=== PATIENT | female | born 1985 | race Caucasian/White ===

== ENCOUNTER 2018-02-07 18:46 | Emergency (ER) | payer BC ==
[2018-02-07] MEDS ORDERED: ASPIRIN 81 MG CHEWABLE TABLET ONE (19:27)
[2018-02-07 19:40] LABS: Absolute Lymphocytes (CBC) 3.6 K/uL (0.7-4.9); Absolute Monocytes 0.6 K/uL (0.1-1.3); Absolute Neutrophil 7.1 K/uL (1.8-8.0); Basophils % 0.4 % (0-1.3); Eosinophils % 2.3 % (0-4.4); Hematocrit 44.9 % (36.0-45.0); Lymphocytes % 31.1 % (15.3-44.8); MCH 30.7 pg (27.0-35.0); MCV 92.8 fL (80-100); MPV 8.5 fL (7.6-11.3); Monocytes % 5.5 % (3.3-12.3); RBC Red Blood Cell Count 4.83 M/uL (3.86-4.86)
[2018-02-07 19:41] LABS: Protime INR 1.01
--- NOTE | 2018-02-07 20:02 | RAD REPORT ---
EXAM DESCRIPTION: [place] Single View02/07/2018 7:22 pm CLINICAL HISTORY: Chest pain COMPARISON: none FINDINGS: The lungs appear clear of acute infiltrate. The heart is normal size IMPRESSION: No acute abnormalities displayed
[2018-02-07 20:03] LABS: Potassium 4.2 mEq/L (3.6-5.0)
[2018-02-07 20:04] LABS: Magnesium 2.2 mg/dL (1.8-2.5)
[2018-02-07 20:30] LABS: Thyroid Stimulating Hormone 2.31 uIU/mL (0.34-5.60)
[2018-02-07 20:45] LABS: Urine Blood TRACE (NEG); Urine Glucose NEGATIVE (NEG); Urine Protein NEGATIVE (NEG); Urine Specific Gravity <1.005 (1.005-1.030)
[2018-02-07] MEDS ORDERED: ONDANSETRON 4 MG/2 ML VIAL ONE (20:46)
[2018-02-07] MEDS ORDERED: NA CHLORIDE 0.9% 1,000 ML ONE (21:41)
--- NOTE | 2018-02-07 21:51 | RAD REPORT ---
EXAM DESCRIPTION: CT - Chest For Pe Angio - 02/07/2018 9:32 pm CLINICAL HISTORY: Chest pain and shortness of breath COMPARISON: None. TECHNIQUE: Dynamically enhanced axial 3 mm thick images of the chest were obtained during administra tion of <100> mL Isovue 370 IV contrast. Coronal and oblique reconstruction images were generated and reviewed. Exam utilizes a protocol for optimal evaluation of pulmonary arterial tree. All CT scans are performed using dose optimization technique as appropriate and may include automated exposure control or mA/KV adjustment according to patient size. FINDINGS: A pulmonary embolus is not seen. A thoracic aortic aneurysm is not noted. A pleural effusion is not seen. A pericardial effusion is not seen. A lung consolidation is not present. A small hiatal hernia is present IMPRESSION: Negative for a pulmonary embolism.
--- NOTE | 2018-02-07 22:19 | ER ---
Nurse's Notes [facility] Name: Nellie Deng Age: 32 yrs Sex: Female : 1985 Arrival Date: 02/07/2018 Time: 18:48 Bed 6 Private MD: Anderson Gamez Diagnosis: Chest pain, unspecified Presentation: 02/07 18:55 Presenting complaint: Patient states: I was at home cooking and got a burning sensation la1 in my chest and to my left arm. Pt reports near syncope. reports drinking 3 beers prior to pain staring. PT states she feels dizzy, lightheaded, and disoriented. Transition of care: patient was not received from another setting of care. Onset of symptoms was February 07, 2018. Initial Sepsis Screen: Does the patient meet any 2 criteria? No. Patient's initial sepsis screen is negative. Does the patient have a suspected source of infection? No. Patient's initial sepsis screen is negative. Care prior to arrival: None. 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 - Social history:: Smoking status: Patient uses tobacco products, smokes one pack cigarettes per day. Screenin:21 Tuberculosis screening: No symptoms or risk factors identified. ak1 19:21 Abuse screen: Denies threats or abuse. Denies injuries from another. Nutritional ak1 screening: No deficits noted. Fall Risk None identified. Assessment: 19:18 General: Appears in no apparent distress. Behavior is calm, cooperative, Smells of ak1 alcohol. Pain: Complains of pain in chest Pain radiates to left arm Pain began today. Neuro: Level of Consciousness is awake, alert, obeys commands, Oriented to person, place, time, situation, Superior Court Clerk are equal bilaterally Moves all extremities. Gait is steady, Speech is slurred, pt admits to drinking 3 beers today.. Facial symmetry appears normal. Cardiovascular: Reports chest pain, Rhythm is sinus tachycardia. Respiratory: No deficits noted. GI: No signs and/or symptoms were reported involving the gastrointestinal system. : No signs and/or symptoms were reported regarding the genitourinary system. EENT: No signs and/or symptoms were reported regarding the EENT system. Derm: No signs and/or symptoms reported regarding the dermatologic system. Musculoskeletal: No signs and/or symptoms reported regarding the musculoskeletal system. 20:51 Reassessment: pt coughing "so hard I vomited". General:. ak1 22:59 Reassessment: Patient appears in no apparent distress at this time. No changes from ak1 previously documented assessment. Patient is alert, oriented x 3, equal unlabored respirations, skin warm/dry/pink. Vital Signs: 18:57 BP 146 / 114; Pulse 131; Resp 19; Temp 98.3; Pulse Ox 100% on R/A; Weight 136.08 kg; la1 Height 6 ft. 1 in. (185.42 cm); 19:12 BP 156 / 77; Pulse 113; Resp 18; Pulse Ox 99% on R/A; mt 22:53 BP 115 / 71; Pulse 104; Resp 20; Pulse Ox 100% on R/A; mt 18:57 Body Mass Index 39.58 (136.08 kg, 185.42 cm) la1 ED Course: 18:48 Patient arrived in ED. rg4 18:49 Anderson Gamez MD is Private Physician. rg4 18:57 Triage completed. la1 18:57 Arm band placed on left wrist. la1 19:01 Ryan Quiroz PA is PHCP. jr8 19:01 Gonsalo Servin MD is Attending Physician. jr8 19:09 Kailash Spears RN is Primary Nurse. mg2 19:19 X-ray completed. Portable x-ray completed in exam room. Patient tolerated procedure ml well. 19:20 XRAY Chest (1 view) In Process Unspecified. EDMS 19:21 Patient has correct armband on for positive identification. Bed in low position. Call ak1 light in reach. Side rails up X 1. Adult w/ patient. monitoring tech on. Pulse ox on. NIBP on. 19:21 Patient maintains SpO2 saturation greater than 95% on room air. ak1 19:30 Inserted saline lock: 20 gauge in left antecubital area, using aseptic technique. Blood mt collected. 20:26 Radiology exam delayed due to test not completed at this time. nj 21:[address] via wheelchair. nj 21:31 CT completed. Patient tolerated procedure well. Patient moved back from CT. nj 21:32 CT Chest For PE Angio In Process Unspecified. EDMS 22:18 Anderson Gamez MD is Referral Physician. jr8 22:18 Sy Vitale MD is Referral Physician. jr8 22:21 Repeat lab(s) drawn. by ca, sent to lab. ak1 22:59 No provider procedures requiring assistance completed. IV discontinued, intact, ak1 bleeding controlled, No redness/swelling at site. Pressure dressing applied. Administered Medications: 19:35 Drug: Aspirin Chewable Tablet 324 mg Route: PO; ak1 19:42 Follow up: Response: No adverse reaction ak1 20:52 Drug: Zofran 4 mg Route: IVP; Site: left antecubital; ak1 21:19 Follow up: Response: No adverse reaction ak1 21:43 Drug: NS 0.9% 1000 ml Route: IV; Rate: 1000 ml; Site: left antecubital; ak1 22:59 Follow up: IV Status: Completed infusion ak1 Outcome: 22:19 Discharge ordered by . jr8 22:59 Discharged to home ambulatory, with family. ak1 22:59 Condition: improved 23:06 Discharge instructions given to patient, family, Instructed on discharge instructions, ak1 follow up and referral plans. Demonstrated understanding of instructions, follow-up care. 23:18 Patient left the ED. ak1 Signatures: Dispatcher [employer] EDMS Shelly Abbott Josh, PA PA jr8 Lucas Berkowitz, RN RN Lynnette Baldwin RN RN [email or web address] Sugar [email or web address] Buster Casanova [facility] Kailash Spears RN RN mg2
--- NOTE | 2018-02-07 22:19 | EDPHYS ---
Physician Documentation [facility] Name: Nellie Deng Age: 32 yrs Sex: Female : 1985 Arrival Date: 02/07/2018 Time: 18:48 Bed 6 Private MD: Anderson Gamez ED Physician Gonsalo Servin HPI: 02/07 21:00 This 32 yrs old Female presents to ER via Ambulatory with complaints of Chest jr8 Tightness, Dizziness, Numbness Of Arm. 21:00 The patient or guardian reports chest pain that is located primarily in the substernal jr8 area. The pain radiates to the left arm. Associated signs and symptoms: Pertinent positives: lightheadedness, near-syncope. The chest pain is described as burning. Duration: The patient or guardian reports a single episode. Modifying factors: The symptoms are alleviated by nothing. the symptoms are aggravated by nothing. Severity of pain: At its worst the pain was moderate in the emergency department the pain is unchanged. The patient has not experienced similar symptoms in the past. The patient has not recently seen a physician. 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 - Social history:: Smoking status: Patient uses tobacco products, smokes one pack cigarettes per day. ROS: 21:00 Eyes: Negative for injury, pain, redness, and discharge, ENT: Negative for injury, jr8 pain, and discharge, Neck: Negative for injury, pain, and swelling, Respiratory: Negative for shortness of breath, cough, wheezing, and pleuritic chest pain, Abdomen/GI: Negative for abdominal pain, nausea, vomiting, diarrhea, and constipation, Back: Negative for injury and pain, MS/Extremity: Negative for injury and deformity, Skin: Negative for injury, rash, and discoloration. 21:00 Cardiovascular: Positive for chest pain, Negative for edema, orthopnea, palpitations, paroxysmal nocturnal dyspnea. 21:00 Neuro: Positive for near syncope, Negative for altered mental status, dizziness, gait disturbance, headache, hearing loss, loss of consciousness, numbness, seizure activity, speech changes, syncope, tinnitus, tremor, visual changes, weakness. Exam: 22:14 Eyes: Pupils equal round and reactive to light, extra-ocular motions intact. Lids and jr8 lashes normal. Conjunctiva and sclera are non-icteric and not injected. Cornea within normal limits. Periorbital areas with no swelling, redness, or edema. ENT: Nares patent. No nasal discharge, no septal abnormalities noted. Tympanic membranes are normal and external auditory canals are clear. Oropharynx with no redness, swelling, or masses, exudates, or evidence of obstruction, uvula midline. Mucous membranes moist. Neck: Trachea midline, no thyromegaly or masses palpated, and no cervical lymphadenopathy. Supple, full range of motion without nuchal rigidity, or vertebral point tenderness. No Meningismus. Respiratory: Lungs have equal breath sounds bilaterally, clear to auscultation and percussion. No rales, rhonchi or wheezes noted. No increased work of breathing, no retractions or nasal flaring. Abdomen/GI: Soft, non-tender, with normal bowel sounds. No distension or tympany. No guarding or rebound. No evidence of tenderness throughout. Back: No spinal tenderness. No costovertebral tenderness. Full range of motion. Skin: Warm, dry with normal turgor. Normal color with no rashes, no lesions, and no evidence of cellulitis. MS/ Extremity: Pulses equal, no cyanosis. Neurovascular intact. Full, normal range of motion. Neuro: Awake and alert, GCS 15, oriented to person, place, time, and situation. Cranial nerves II-XII grossly intact. Motor strength 5/5 in all extremities. Sensory grossly intact. Cerebellar exam normal. Normal gait. 22:14 Cardiovascular: Rate: tachycardic, Rhythm: regular, Pulses: Pulses are 2+ in right radial artery and left radial artery. Heart sounds: normal, normal S1and S2, no S3 or S4, no murmur, no rub, no gallop, Edema: is not appreciated, JVD: is not appreciated. Vital Signs: 18:57 BP 146 / 114; Pulse 131; Resp 19; Temp 98.3; Pulse Ox 100% on R/A; Weight 136.08 kg; la1 Height 6 ft. 1 in. (185.42 cm); 19:12 BP 156 / 77; Pulse 113; Resp 18; Pulse Ox 99% on R/A; mt 22:53 BP 115 / 71; Pulse 104; Resp 20; Pulse Ox 100% on R/A; mt 18:57 Body Mass Index 39.58 (136.08 kg, 185.42 cm) la1 MDM: 19:01 Patient medically screened. jr8 22:14 Differential diagnosis: abnormal EKG, acute myocardial infarction, acute pericarditis, jr8 anxiety, chest wall pain, costochondritis, esophagitis, gastritis, gastroesophageal reflux disease (GERD), pancreatitis, pneumonia, pulmonary embolus, thoracic aortic disection. Data reviewed: vital signs, nurses notes, lab test result(s), EKG, radiologic studies, CT scan, plain films. Data interpreted: Pulse oximetry: on room air is 99 %. Interpretation: normal. Counseling: I had a detailed discussion with the patient and/or guardian regarding: the historical points, exam findings, and any diagnostic results supporting the discharge/admit diagnosis, lab results, radiology results, the need for outpatient follow up, a laboratory tech, a family practitioner, to return to the emergency department if symptoms worsen or persist or if there are any questions or concerns that arise at home. ED course: Patient currently without pain. Discussed differential in detail with patient and . No acute life threatening results noted. Advised to reduce alcohol intake. To f/u with family and cardiology . 02/07 19:01 Order name: Basic Metabolic Panel; Complete Time: 20:20 02/07 19:01 Order name: BNP; Complete Time: 20:20 02/07 19:01 Order name: CBC with Diff; Complete Time: 20:20 [facility] 02/07 19:01 Order name: Magnesium; Complete Time: 20:20 [facility] 02/07 19:01 Order name: PT-INR; Complete Time: 19:59 02/07 19:01 Order name: Troponin (emerg Dept Use Only); Complete Time: 19:59 02/07 19:01 Order name: XRAY Chest (1 view); Complete Time: 20:20 02/07 19:10 Order name: TSH; Complete Time: 20:34 [facility] 02/07 19:10 Order name: T4 Free; Complete Time: 20:34 [facility] 02/07 19:50 Order name: Urine Dipstick--Ancillary (enter results); Complete Time: 21:00 rg2 02/07 19:50 Order name: Test, Serum; Complete Time: 21:00 [facility] 02/07 20:20 Order name: CT Chest For PE Angio; Complete Time: 21:55 [facility] 02/07 22:03 Order name: Troponin (emerg Dept Use Only); Complete Time: 11:04 02/07 19:01 Order name: Cardiac monitoring; Complete Time: 19:22 [facility] 02/07 19:01 Order name: EKG - Nurse/Tech; Complete Time: :22 02/07 19:01 Order name: IV Saline Lock; Complete Time: 19:31 02/07 19:01 Order name: Labs collected and sent; Complete Time: : 02/07 19:01 Order name: O2 Per Protocol; Complete Time: :02/07 19:01 Order name: O2 Sat Monitoring; Complete Time: :02/07 19:01 Order name: Urine Dipstick-Ancillary (obtain specimen); Complete Time: 19:42 Administered Medications: 19:35 Drug: Aspirin Chewable Tablet 324 mg Route: PO; ak1 19:42 Follow up: Response: No adverse reaction ak1 20:52 Drug: Zofran 4 mg Route: IVP; Site: left antecubital; ak1 21:19 Follow up: Response: No adverse reaction ak1 21:43 Drug: NS 0.9% 1000 ml Route: IV; Rate: 1000 ml; Site: left antecubital; ak1 22:59 Follow up: IV Status: Completed infusion ak1 Disposition: 02/08 22:31 Co-signature as Attending Physician, Gonsalo Servin MD I agree with the assessment and kdr plan of care. Disposition: 02/07/18 22:19 Discharged to Home. Impression: Chest pain, unspecified. - Condition is Stable. - Discharge Instructions: Nonspecific Chest Pain. - Medication Reconciliation Form, Thank You Letter, Antibiotic Education, Prescription Opioid Use form. - Follow up: Anderson Gamez MD; When: 2 - 3 days; Reason: Recheck today's complaints, Continuance of care, Re-evaluation by your physician. Follow up: Sy Vitale MD; When: 2 - 3 days; Reason: Recheck today's complaints, Continuance of care, Re-evaluation by your physician. - Problem is new. - Symptoms are resolved. Signatures: Dispatcher [employer] [facility] Gonsalo Servin MD MD kdr Roszak, Josh, PA PA jr8 Lucas Berkowitz RN RN la1 Lynnette Heard RN RN ak1 Corrections: (The following items were deleted from the chart) 02/07 19:19 19:02 URINE DRUG SCREEN+CHEM UR.LAB.BRZ ordered. [facility] 23:18 22:19 02/07/2018 22:19 Discharged to Home. Impression: Chest pain, unspecified. ak1 Condition is Stable. Forms are Medication Reconciliation Form, Thank You Letter, Antibiotic Education, Prescription Opioid Use. Follow up: Anderson Gamez; When: 2 - 3 days; Reason: Recheck today's complaints, Continuance of care, Re-evaluation by your physician. Follow up: Sy Vitale; When: 2 - 3 days; Reason: Recheck today's complaints, Continuance of care, Re-evaluation by your physician. Problem is new. Symptoms are resolved. jr8
== END 2018-02-07 23:18 | disposition home or self-care (01) ==
LOC: ER 18:46
DX: R07.9 Chest pain, unspecified (principal); F17.210 Nicotine dependence, cigarettes, uncomplicated
CPT/HCPCS: 36415; 71045; 71275; 80048; 81003; 83735; 83880; 84439; 84443; 84484; 84703; 85025; 85610; 93005; 96361; 96374; 99285; J2405; J7030; Q9967

== ENCOUNTER 2018-03-25 09:07 | Emergency (ER) | payer BC ==
[2018-03-25] MEDS ORDERED: HYDROCODONE/APAP 5/325 MG TAB ONE (09:28)
--- NOTE | 2018-03-25 09:45 | EDPHYS ---
Physician Documentation [facility] Name: Nellie Deng Age: 32 yrs Sex: Female : 1985 Arrival Date: 03/25/2018 Time: 09:10 Bed 13 Private MD: Anderson Gamez ED Physician Prashant Estrada HPI: 03/25 09:34 This 32 yrs old Female presents to ER via Ambulatory with complaints of Ankle snw Injury. 09:34 The patient presents with decreased range of motion, pain, that is acute, swelling, snw tenderness. The complaints affect the right ankle. Onset: The symptoms/episode began/occurred suddenly, last night, and became persistent. Context: resulted from a mis-step by the patient, a hole, The mechanism of injury involved inversion of the affected ankle. The patient can fully bear weight on the affected extremity. the patient is able to ambulate. Modifying factors: The symptoms are alleviated by sitting. Severity of symptoms: At their worst the symptoms were moderate, severe. The patient has not experienced similar symptoms in the past. The patient has not recently seen a physician. 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 - Social history:: Smoking status: Patient/guardian denies using tobacco. - Ebola Screening: : Patient negative for fever greater than or equal to 101.5 degrees Fahrenheit, and additional compatible Ebola Virus Disease symptoms. ROS: 09:33 Constitutional: Negative for fever, chills, and weight loss, Eyes: Negative for injury, snw pain, redness, and discharge, ENT: Negative for injury, pain, and discharge, Neck: Negative for injury, pain, and swelling, Cardiovascular: Negative for chest pain, palpitations, and edema, Respiratory: Negative for shortness of breath, cough, wheezing, and pleuritic chest pain, Abdomen/GI: Negative for abdominal pain, nausea, vomiting, diarrhea, and constipation, Back: Negative for injury and pain, : Negative for injury, bleeding, discharge, and swelling, Skin: Negative for injury, rash, and discoloration, Neuro: Negative for headache, weakness, numbness, tingling, and seizure. 09:33 MS/extremity: Positive for injury or acute deformity, ecchymosis, pain, swelling, tenderness, of the right ankle. Exam: 09:23 Constitutional: This is a well developed, well nourished patient who is awake, alert, snw and in no acute distress. Head/Face: Normocephalic, atraumatic. Eyes: Pupils equal round and reactive to light, extra-ocular motions intact. Lids and lashes normal. Conjunctiva and sclera are non-icteric and not injected. Cornea within normal limits. Periorbital areas with no swelling, redness, or edema. ENT: Nares patent. No nasal discharge, no septal abnormalities noted. Tympanic membranes are normal and external auditory canals are clear. Oropharynx with no redness, swelling, or masses, exudates, or evidence of obstruction, uvula midline. Mucous membranes moist. Neck: Trachea midline, no thyromegaly or masses palpated, and no cervical lymphadenopathy. Supple, full range of motion without nuchal rigidity, or vertebral point tenderness. No Meningismus. Chest/axilla: Normal chest wall appearance and motion. Nontender with no deformity. No lesions are appreciated. Cardiovascular: Regular rate and rhythm with a normal S1 and S2. No gallops, murmurs, or rubs. Normal PMI, no JVD. No pulse deficits. Respiratory: Lungs have equal breath sounds bilaterally, clear to auscultation and percussion. No rales, rhonchi or wheezes noted. No increased work of breathing, no retractions or nasal flaring. Abdomen/GI: Soft, non-tender, with normal bowel sounds. No distension or tympany. No guarding or rebound. No evidence of tenderness throughout. Back: No spinal tenderness. No costovertebral tenderness. Full range of motion. Skin: Warm, dry with normal turgor. Normal color with no rashes, no lesions, and no evidence of cellulitis. Neuro: Awake and alert, GCS 15, oriented to person, place, time, and situation. Cranial nerves II-XII grossly intact. Motor strength 5/5 in all extremities. Sensory grossly intact. Cerebellar exam normal. Normal gait. Psych: Awake, alert, with orientation to person, place and time. Behavior, mood, and affect are within normal limits. 09:23 Musculoskeletal/extremity: Extremities: grossly normal except: noted in the right lateral malleolus: ecchymosis, swelling, tenderness, ROM: limited active range of motion due to pain, Circulation is intact in all extremities. Pulses: are normal with no appreciated deficits, Sensation intact. Compartment Syndrome exam of affected extremity: is normal. Joints: Weight bearing: able to fully bear weight. Vital Signs: 09:12 BP 128 / 75; Pulse 95; Resp 19; Temp 98.2(O); Pulse Ox 97% on R/A; Weight 145.15 kg rb1 (R); Height 6 ft. 0 in. (182.88 cm) (R); Pain 6/10; 10:00 BP 128 / 72; Pulse 81; Resp 18; Pulse Ox 99% on R/A; rb1 09:12 Body Mass Index 43.40 (145.15 kg, 182.88 cm) rb1 MDM: 09:12 Patient medically screened. snw 09:46 Data reviewed: vital signs, nurses notes. Data interpreted: Pulse oximetry: on room air snw is 97 %. Interpretation: normal. Counseling: I had a detailed discussion with the patient and/or guardian regarding: the historical points, exam findings, and any diagnostic results supporting the discharge/admit diagnosis, radiology results, the need for outpatient follow up, to return to the emergency department if symptoms worsen or persist or if there are any questions or concerns that arise at home. Special discussion: Based on the history and exam findings, there is no indication for further emergent testing or inpatient evaluation. I discussed with the patient/guardian the need to see the orthopedic surgeon for further evaluation of the symptoms. I discussed with the patient/guardian the need to see the primary care provider for further evaluation of the symptoms. 03/25 09:18 Order name: Ankle Right 3 View XRAY snw 03/25 09:46 Order name: Aircast Ankle Splint; Complete Time: 10:14 snw Administered Medications: 09:27 Drug: [place] 5 mg-325 mg 1 tabs Route: PO; rb1 09:45 Follow up: Response: No adverse reaction; Pain is decreased rb1 Disposition: 18:30 Co-signature as Attending Physician, Prashant Estrada MD. Disposition: 03/25/18 09:44 Discharged to Home. Impression: Sprain of ankle. - Condition is Stable. - Discharge Instructions: Elastic Bandage and RICE, Ankle Sprain, Cast or Splint Care, Ankle Pain, Cryotherapy, Heat Therapy. - Prescriptions for Diclofenac Sodium 75 mg Oral Tablet Sustained Release - take 1 tablet by ORAL route 2 times per day; 30 tablet. orphenadrine citrate 100 mg Oral Tablet Sustained Release - take 1 tablet by ORAL route 2 times per day As needed; 20 tablet. - Work release form, Medication Reconciliation Form, Thank You Letter, Antibiotic Education, Prescription Opioid Use form. - Follow up: Anderson Gamez MD; When: 5 - 6 days; Reason: Recheck today's complaints, Continuance of care, Re-evaluation by your physician. Follow up: Emergency Department; When: As needed; Reason: Worsening of condition. Signatures: Dispatcher [employer] EDMS Ladonna Pimentel FNP-C PROVISIONING ANALYST-Csnw Feli Platt RN RN rb1 Prashant Estrada MD MD Corrections: (The following items were deleted from the chart) 10:18 09:44 03/25/2018 09:44 Discharged to Home. Impression: Sprain of ankle. Condition is rb1 Stable. Forms are Medication Reconciliation Form, Thank You Letter, Antibiotic Education, Prescription Opioid Use. Follow up: Anderson Gamez; When: 5 - 6 days; Reason: Recheck today's complaints, Continuance of care, Re-evaluation by your physician. Follow up: Emergency Department; When: As needed; Reason: Worsening of condition. snw
--- NOTE | 2018-03-25 09:45 | ER ---
Nurse's Notes [facility] Name: Nelile Deng Age: 32 yrs Sex: Female : 1985 Arrival Date: 03/25/2018 Time: 09:10 Bed 13 Private MD: Anderson Gamez Diagnosis: Sprain of ankle Presentation: 03/25 09:12 Presenting complaint: Patient states: She was at a wedding last night when she stepped rb1 into a hole and twisted her ankle. Transition of care: patient was not received from another setting of care. Onset of symptoms was March 24, 2018. Risk Assessment: Do you want to hurt yourself or someone else? Patient reports no desire to harm self or others. Initial Sepsis Screen: Does the patient meet any 2 criteria? No. Patient's initial sepsis screen is negative. Does the patient have a suspected source of infection? No. Patient's initial sepsis screen is negative. Care prior to arrival: None. 09:12 Method Of Arrival: Ambulatory rb1 09:12 Acuity: DAVY 3 rb1 Triage Assessment: 09:12 General: Appears uncomfortable, obese, Behavior is calm, cooperative. Pain: Complains rb1 of pain in right ankle Pain currently is 6 out of 10 on a pain scale. Neuro: Level of Consciousness is awake, alert, obeys commands, Oriented to person, place, time, situation. Cardiovascular: Capillary refill < 3 seconds is brisk in bilateral fingers. Respiratory: Airway is patent Respiratory effort is even, unlabored, Respiratory pattern is regular, symmetrical. GI: No signs and/or symptoms were reported involving the gastrointestinal system. : No signs and/or symptoms were reported regarding the genitourinary system. Derm: Skin is pink, warm \T\ dry. Musculoskeletal: Range of motion: intact in all extremities. 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 - Social history:: Smoking status: Patient/guardian denies using tobacco. - Ebola Screening: : Patient negative for fever greater than or equal to 101.5 degrees Fahrenheit, and additional compatible Ebola Virus Disease symptoms. Screenin:12 Abuse screen: Denies threats or abuse. Nutritional screening: No deficits noted. rb1 Tuberculosis screening: No symptoms or risk factors identified. Fall Risk None identified. Assessment: 09:12 Reassessment: See triage assessment. rb1 10:11 Reassessment: Patient appears in no apparent distress at this time. Patient and/or rb1 family updated on plan of care and expected duration. Pain level reassessed. Patient is alert, oriented x 3, equal unlabored respirations, skin warm/dry/pink. Patient states feeling better. 10:18 Reassessment: Provider had trouble printing discharge papers so discharge was delayed. rb1 Vital Signs: 09:12 BP 128 / 75; Pulse 95; Resp 19; Temp 98.2(O); Pulse Ox 97% on R/A; Weight 145.15 kg rb1 (R); Height 6 ft. 0 in. (182.88 cm) (R); Pain 6/10; 10:00 BP 128 / 72; Pulse 81; Resp 18; Pulse Ox 99% on R/A; rb1 09:12 Body Mass Index 43.40 (145.15 kg, 182.88 cm) rb1 ED Course: 09:10 Patient arrived in ED. sb2 09:11 Anderson Gamez MD is Private Physician. sb2 09:12 [facility]iment[facility]C [facility] snw 09:12 Prashant Estrada MD is Attending Physician. snw 09:12 Patient has correct armband on for positive identification. Bed in low position. Call rb1 light in reach. Side rails up X 1. Pulse ox on. NIBP on. 09:12 Arm band placed on left wrist. rb1 09:22 Feli Platt, KHUSHBOO is Primary Nurse. rb1 09:29 Triage completed. rb1 09:41 X-ray completed. Portable x-ray completed in exam room. Patient tolerated procedure la2 well. 09:42 Ankle Right 3 View XRAY In Process Unspecified. EDMS 09:44 Andersno Gamez MD is Referral Physician. snw 10:17 No provider procedures requiring assistance completed. Patient did not have IV access rb1 during this emergency room visit. Administered Medications: 09:27 Drug: [place] 5 mg-325 mg 1 tabs Route: PO; rb1 09:45 Follow up: Response: No adverse reaction; Pain is decreased rb1 Outcome: 09:44 Discharge ordered by . alfredo 10:17 Discharged to home via wheelchair, with family. rb1 10:17 Condition: stable 10:17 Discharge instructions given to patient, Instructed on discharge instructions, follow up and referral plans. medication usage, Demonstrated understanding of instructions, follow-up care, medications, Prescriptions given X 2. 10:18 Patient left the ED. rb1 Signatures: Dispatcher [employer] EDMS Ladonna Pimentel, [employer] Feli Platt, RN RN rb1 Tanna Mustafa la2 Brandee Nolasco2
--- NOTE | 2018-03-25 11:50 | RAD REPORT ---
EXAM DESCRIPTION: RAD - Ankle Right 3 View - 03/25/2018 9:43 am CLINICAL HISTORY: Pain;Swelling COMPARISON: No comparisons FINDINGS: Moderate soft tissue swelling is present about the ankle. Small calcaneal spurs are presen t. An acute fracture is not seen.
== END 2018-03-25 10:18 | disposition home or self-care (01) ==
LOC: ER 09:07
DX: S93.401A Sprain of unspecified ligament of right ankle, initial encounter (principal); X58.XXXA Exposure to other specified factors, initial encounter; Y93.01 Activity, walking, marching and hiking; Y92.9 Unspecified place or not applicable
CPT/HCPCS: 99284

== ENCOUNTER 2018-09-04 13:10 | Observation (INO) | payer BC ==
[2018-09-04] MEDS ORDERED: ONDANSETRON 4 MG/2 ML VIAL IV PRN (14:50)
--- NOTE | 2018-09-04 15:38 | RAD REPORT ---
EXAM DESCRIPTION: US - Extremity Venous Uni Ltd - 09/04/2018 3:18 pm CLINICAL HISTORY: Leg pain and swelling COMPARISON: None. TECHNIQUE: Real-time sonographic evaluation of the left lower extremity deep venous system was perfo rmed. FINDINGS: Normal compressibility, flow augmentation, phasic flow and spontaneous flow are identified in the left lower extremity common femoral, superficial femoral, popliteal and posterior tibial vein s. No intraluminal filling defects seen. IMPRESSION: No DVT in the left lower extremity.
[2018-09-04] MEDS: DEXAMETHASONE 4 MG/ML VIAL IV SCH (16:33)
[2018-09-04 17:26] LABS: Absolute Lymphocytes (CBC) 2.5 K/uL (0.7-4.9); Absolute Monocytes 0.5 K/uL (0.1-1.3); Absolute Neutrophil 6.7 K/uL (1.8-8.0); Basophils % 0.5 % (0-1.3); Hematocrit 41.5 % (36.0-45.0); Lymphocytes % 25.5 % (15.3-44.8); MCH 31.8 pg (27.0-35.0); MCV 93.6 fL (80-100); MPV 8.4 fL (7.6-11.3); Monocytes % 4.7 % (3.3-12.3); RBC Red Blood Cell Count 4.43 M/uL (3.86-4.86)
[2018-09-04 17:53] LABS: Potassium 4.1 mmol/L (3.5-5.1)
--- NOTE | 2018-09-04 17:54 | RAD REPORT ---
EXAM DESCRIPTION: MRI - Lumbar Spine Wo Will - 09/04/2018 3:53 pm CLINICAL HISTORY: Back pain, radiculopathy into the left leg COMPARISON: None. TECHNIQUE: Sagittal T1-weighted, T2-weighted and T2-STIR weighted sequences were obtained. Axial T1 -weighted and heavily T2-weighted sequenceswere obtained through the lumbar disc levels. FINDINGS: Lumbar bodies are normal in height and alignment. No suspicious marrow signal. No paraspi nal masses. Lumbosacral transition body is present labeled S1 for the purposes of this examination. Conus is normal with no clumping or thickening of the cauda equina. T12-L1 level: Obscured from view L1-2 level: No significant findings. L2-3 level: No significant findings. L3-4 level: No significant findings. L4-5 level: Disc desiccation is present. Midline disc bulge flattens the anterior thecal sac but does not cause central spinal stenosis. Annular fissure is present. No foraminal stenosis. L5-S1 level: Fatty marrow changes abut the inferior L5 endplate. Disc is thinned and desiccated. Ther e is a very large midline and left-sided disc herniation measuring 3 cm cc by 1.5 cm AP x 1.3 cm TR. This fills much of the central canal. There is flattening of the thecal sac anterior left margin. Walt tral spinal stenosis is present. Mild foraminal encroachment is present from disc bulge and endplate spurring. Facet degenerative changes minimal. IMPRESSION: L5-S1 very large 3 centimeter midline and left-sided disc herniation filling the central canal. There is flattening of the thecal sac and central spinal stenosis. Mild L5-S1 foraminal encroachment from disc bulge and endplate spurring. L4-5 disc desiccation with midline disc bulge and annular fissure. No central spinal stenosis.
[2018-09-04] MEDS: MORPHINE 2 MG/ML SYR IV PRN (17:55)
[2018-09-04] MEDS: METHOCARBAMOL 1,000 MG in NA CHLORIDE 0.9% 100 ML IV SCH (17:57)
[2018-09-04 19:28] LABS: Urine Appearance CLOUDY; Urine Blood NEGATIVE (NEG); Urine Color DK YELLOW; Urine Glucose NEGATIVE (NEG); Urine Protein NEGATIVE (NEG); Urine Specific Gravity >=1.030 (1.005-1.030)
[2018-09-04 19:32] LABS: Urine Bilirubin 1+ (NEG); Urine Microscopic Reflex NO UMIC
[2018-09-04] MEDS ORDERED: AMITRIPTYLINE 50 MG TAB PO SCH (21:00)
[2018-09-05] MEDS: METHOCARBAMOL 1,000 MG in NA CHLORIDE 0.9% 100 ML IV SCH ×2 (00:44→09:38)
[2018-09-05] MEDS: DEXAMETHASONE 4 MG/ML VIAL IV SCH (01:55)
[2018-09-05] MEDS: MORPHINE 2 MG/ML SYR IV PRN (09:37)
--- NOTE | 2018-09-05 21:07 | PN ---
Date of Progress Note: 09/05/2018 The patient was admitted to the hospital after being seen in the office for theoretically a steroid s hot for her low back pain; however, patient was having marked trouble with her balance and walking. The pain increased, she stated after she had been treated with prednisone and analgesics. I felt that she probably had a ruptured disc and felt that this needed to be addressed rather than a steroid lv t, she was therefore admitted. MRI showed extremely large disc L5-S1, obviously the cause of the pro blem. The possibility of DVT was also considered due to the back and the leg pain; however, her Doppl er was negative. She felt she could handle this situation at home, while I will try to send her to a neurosurgeon in [place] for what I feel is a surgical situation as soon as possible. HR/MODL Voice ID: [id number] Report ID: [id number]
== END 2018-09-05 15:58 | disposition home or self-care (01) ==
LOC: 2ND 14:12
PROVIDERS: ADMIT Family Medicine; ATTEND Family Medicine
DX: M51.27 Other intervertebral disc displacement, lumbosacral region (principal)
CPT/HCPCS: 36415; 72148; 80048; 81003; 85025; 93971; G0378; J2270; J2800

== ENCOUNTER 2020-11-21 18:07 | Emergency (ER) | payer BC ==
[2020-11-21 19:38] LABS: Urine Blood NEGATIVE (NEG); Urine Glucose NEGATIVE (NEG); Urine Protein 1+ (NEG); Urine Specific Gravity >1.030 (1.005-1.030); Urine pH 5.5 (5.0-7.0)
[2020-11-21 19:44] LABS: Basophils % 0.8 % (0-1.3)
--- NOTE | 2020-11-21 19:45 | RAD REPORT ---
EXAM DESCRIPTION: RAD - Chest Single View - 11/21/2020 7:16 pm CLINICAL HISTORY: COUGH Chest pain. COMPARISON: Chest Single View dated 02/07/2018 FINDINGS: Portable technique limits examination quality. The lungs are grossly clear. The heart is upper limit of normal in size. No displaced fractures. IMPRESSION: No acute intrathoracic process suspected.
[2020-11-21] MEDS ORDERED: KETOROLAC 30 MG/ML INJ ONE (19:48)
[2020-11-21 19:51] LABS: Absolute Lymphocytes (CBC) 2.4 K/uL (0.7-4.9); Hematocrit 45.1 % (36.0-45.0); Lymphocytes % 27.1 % (15.3-44.8); MPV 10.4 fL (7.6-11.3)
[2020-11-21 19:56] LABS: Albumin 3.9 g/dL (3.4-5.0); Bilirubin Direct 0.2 mg/dL (0-0.2); Bilirubin Total 0.6 mg/dL (0.2-1.0); Potassium 3.9 mmol/L (3.5-5.1); Protein, Total 8.2 g/dL (6.4-8.2)
[2020-11-21] MEDS ORDERED: NA CHLORIDE 0.9% 1,000 ML ONE (20:02)
[2020-11-21 20:19] LABS: Urine Bacteria 20-50 /HPF (<20); Urine RBC <5 /HPF (NONE SEEN)
[2020-11-21 20:20] LABS: Urine Mucus 2+ /HPF (NONE SEEN)
--- NOTE | 2020-11-21 20:38 | RAD REPORT ---
EXAM DESCRIPTION: CTAbdomen Pelvis W Contrast - 11/21/2020 8:29 pm CLINICAL HISTORY: Abdominal pain. LUQ abdomen pain COMPARISON: No comparisons TECHNIQUE: Biphasic CT imaging of the abdomen and pelvis was performed with 100 ml non-ionic IV cont rast. All CT scans are performed using dose optimization technique as appropriate and may include automated exposure control or mA/KV adjustment according to patient size. FINDINGS: The lung bases are clear. The liver demonstrates diffuse fatty infiltration. The spleen, pancreas, adrenal glands and kidneys a re within normal limits. No bowel obstruction, free air, free fluid or abscess. The appendix is normal. No evidence of signi ficant lymphadenopathy. No suspicious bony findings. IMPRESSION: Advanced fatty liver.
--- NOTE | 2020-11-21 21:41 | EDPHYS ---
Physician Documentation [facility] Name: Nellie Deng Age: 35 yrs Sex: Female : 1985 Arrival Date: 11/21/2020 Time: 18:11 Bed 19 Private MD: ED Physician Slick Call HPI: 11/21 18:55 This 35 yrs old Female presents to ER via Ambulatory with complaints of cp Abdominal Pain. 18:55 The patient presents with abdominal pain in the left upper quadrant. Onset: The cp symptoms/episode began/occurred 2 day(s) ago. The symptoms do not radiate. Associated signs and symptoms: Pertinent negatives: anorexia, chest pain, constipation, diarrhea, dysuria, fever, vomiting. The symptoms are described as feels like a "knot". Severity of pain: in the emergency department the pain is unchanged despite home interventions. Patient reports non-productive cough times 1 month. Denies injury to area. Historical: - Allergies: 18:19 No Known Allergies; ss - PMHx: 18:19 Anxiety; ss - PSHx: 18:19 ; back x 3; ss - Immunization history:: Adult Immunizations up to date. - Social history:: Smoking status: Patient reports the use of cigarette tobacco products, smokes one pack cigarettes per day. ROS: 19:00 Constitutional: Negative for body aches, chills, fever, poor PO intake. cp 19:00 Eyes: Negative for injury, pain, redness, and discharge. cp 19:00 Cardiovascular: Negative for chest pain, edema, palpitations. 19:00 Respiratory: Negative for cough, shortness of breath, wheezing. 19:00 Abdomen/GI: Positive for abdominal pain, of the left upper quadrant, Negative for vomiting, diarrhea, constipation, abdominal distension, anorexia. 19:00 Back: Negative for radiated pain. 19:00 Skin: Negative for cellulitis, rash. 19:00 Neuro: Negative for altered mental status, headache, weakness. 19:00 All other systems are negative. Exam: 19:05 Constitutional: The patient appears in no acute distress, alert, awake, cp non-diaphoretic, non-toxic, well developed, well nourished, obese, uncomfortable. 19:05 Head/Face: Normocephalic, atraumatic. cp 19:05 Eyes: Periorbital structures: appear normal, Conjunctiva: normal, no exudate, no injection, Sclera: no appreciated abnormality, Lids and lashes: appear normal, bilaterally. 19:05 ENT: External ear(s): are unremarkable, Nose: is normal, Mouth: Lips: moist, Oral mucosa: moist, Posterior pharynx: Airway: no evidence of obstruction, patent. 19:05 Chest/axilla: Inspection: normal, Palpation: is normal, no crepitus, no tenderness. 19:05 Cardiovascular: Rate: tachycardic, Rhythm: regular, Edema: is not appreciated, JVD: is not appreciated. 19:05 Respiratory: the patient does not display signs of respiratory distress, Respirations: normal, no use of accessory muscles, no retractions, labored breathing, is not present, Breath sounds: are clear throughout, no decreased breath sounds, no stridor, no wheezing. 19:05 Abdomen/GI: Inspection: obese Bowel sounds: active, all quadrants, Palpation: soft, in all quadrants, moderate abdominal tenderness, in the left upper quadrant, rebound tenderness, is not appreciated, involuntary guarding, is not appreciated. 19:05 Back: pain, is absent, ROM is normal. 19:05 Skin: cellulitis, is not appreciated, no rash present. Vital Signs: 18:17 BP 148 / 69; Pulse 114; Resp 18; Temp 98.0(O); Pulse Ox 99% on R/A; Weight 149.69 kg; ss Height 6 ft. 0 in. (182.88 cm); Pain 2/10; 19:45 BP 152 / 104; Pulse 91; Resp 16; Pulse Ox 98% on R/A; jb4 20:45 BP 140 / 98; Pulse 97; Resp 17; Pulse Ox 98% on R/A; jb4 18:17 Body Mass Index 44.76 (149.69 kg, 182.88 cm) ss MDM: 18:34 Patient medically screened. andressa 19:00 Differential diagnosis: cholecystitis, Cholelithiasis, non-specific abd pain, cp Pyelonephritis, Ureterolithiasis, urinary tract infection. 21:40 Data reviewed: vital signs, nurses notes, lab test result(s), radiologic studies, CT cp scan, plain films, ultrasound. 21:40 Test interpretation: by ED physician or midlevel provider: plain radiologic studies. 21:40 Counseling: I had a detailed discussion with the patient and/or guardian regarding: the cp historical points, exam findings, and any diagnostic results supporting the discharge/admit diagnosis, lab results, radiology results, to return to the emergency department if symptoms worsen or persist or if there are any questions or concerns that arise at home. 21:40 ED course: VSS. Pain improved with meds. Radiology studies negative for acute findings. cp Will discharge to home for continued monitoring. 11/21 18:48 Order name: Basic Metabolic Panel 11/21 18:48 Order name: CBC with Diff 11/21 18:48 Order name: Hepatic Function 11/21 18:48 Order name: Lipase; Complete Time: 20:42 11/21 18:48 Order name: IV Saline Lock; Complete Time: 19:25 11/21 18:48 Order name: Labs collected and sent; Complete Time: 19:25 11/21 18:48 Order name: Urine Microscopic Only; Complete Time: 20:42 11/21 20:42 Interpretation: Normal except: UBACT 20-50; SQEPI 5-10. 11/21 18:48 Order name: Urine Dipstick-Ancillary (obtain specimen); Complete Time: 20:02 11/21 18:48 Order name: Urine Test (obtain specimen); Complete Time: 20:01 11/21 18:48 Order name: XRAY Chest (1 view); Complete Time: 20:42 11/21 18:48 Order name: Basic Metabolic Panel; Complete Time: 20:42 EDRI 11/21 20:42 Interpretation: Normal except: GLUC 71; GFR 82. 11/21 18:48 Order name: CBC with Automated Diff; Complete Time: 20:42 EDRI 11/21 20:42 Interpretation: Normal except: HGB 15.5; HCT 45.1; MCV 93.8. 11/21 18:49 Order name: Liver (Hepatic) Function; Complete Time: 20:42 EDRI 11/21 21:34 Interpretation: Normal except: AST 189; ALT 242; GLOB 4.3; A/G 0.9. 11/21 19:32 Order name: CT Abd/Pelvis - IV Contrast Only; Complete Time: 20:42 11/21 19:37 Order name: Urine Dipstick--Ancillary (enter results) fl 11/21 19:37 Order name: Urine --Ancillary (enter results) fl 11/21 19:38 Order name: Urine Dipstick-Ancillary; Complete Time: 20:42 [facility] 11/21 19:38 Order name: Urine --Ancillary; Complete Time: 20:42 [facility] 11/21 20:20 Order name: Urine Culture [facility] 11/21 20:45 Order name: US Abdomen Limited: elevated liver enzymes; Complete Time: 21:44 cp Administered Medications: 19:35 Drug: TORadol - Ketorolac 15 mg Route: IVP; Site: left antecubital; bb 19:37 Follow up: Response: No adverse reaction bb 19:50 Drug: NS 0.9% 1000 ml Route: IV; Rate: 1 bolus; Site: left antecubital; jb4 Disposition: 11/21/20 21:41 Discharged to Home. Impression: Unspecified abdominal pain, Abnormal results of liver function studies, Fatty (change of) liver, not elsewhere classified. - Condition is Stable. - Discharge Instructions: Abdominal Pain, Adult, Nonalcoholic Fatty Liver Disease Diet. - Prescriptions for Naprosyn 500 mg Oral Tablet - take 1 tablet by ORAL route 2 times per day take with food; 20 tablet. - Medication Reconciliation Form, Thank You Letter, Antibiotic Education, Prescription Opioid Use form. - Follow up: Floyd Sparks MD; When: 2 - 3 days; Reason: elevated liver enzymes. - Problem is new. - Symptoms have improved. Addendum: 12/10/2020 19:51 Co-signature as Attending Physician, Slick Call MD. m h7 Signatures: Dispatcher [employer] Joe Powell MD MD cha Ballard, Brenda, RN RN Kailyn Morrell RN RN ss Page, Corey, PA PA cp Bryson, James, RN RN jb4 Marga Chaudhari RN RN vg1 Slick Call MD MD mh7 Corrections: (The following items were deleted from the chart) 11/21 21:44 21:41 11/21/2020 21:41 Discharged to Home. Impression: Unspecified abdominal pain; cp Abnormal results of liver function studies. Condition is Stable. Forms are Medication Reconciliation Form, Thank You Letter, Antibiotic Education, Prescription Opioid Use. Follow up: Floyd Sparks; When: 2 - 3 days; Reason: elevated liver enzymes. Problem is new. Symptoms have improved. cp 21:56 21:44 11/21/2020 21:41 Discharged to Home. Impression: Unspecified abdominal pain; vg1 Abnormal results of liver function studies; Fatty (change of) liver, not elsewhere classified. Condition is Stable. Discharge Instructions: Abdominal Pain, Adult. Prescriptions for Naprosyn 500 mg Oral Tablet - take 1 tablet by ORAL route 2 times per day take with food; 20 tablet. and Forms are Medication Reconciliation Form, Thank You Letter, Antibiotic Education, Prescription Opioid Use. Follow up: Floyd Sparks; When: 2 - 3 days; Reason: elevated liver enzymes. Problem is new. Symptoms have improved. cp
--- NOTE | 2020-11-21 21:41 | ER ---
Nurse's Notes [facility] Name: Nellie Deng Age: 35 yrs Sex: Female : 1985 Arrival Date: 11/21/2020 Time: 18:11 Bed 19 Private MD: Diagnosis: Unspecified abdominal pain;Abnormal results of liver function studies;Fatty (change of) liver, not elsewhere classified Presentation: 11/21 18:17 Chief complaint: Patient states: "hard knot" to LUQ. Pt denies injury. Pt reports that ss the pain is worse when coughing or moving. Coronavirus screen: Client denies travel out of the [place] in the last 14 days. Ebola Screen: Patient denies exposure to infectious person. Patient denies travel to an Ebola-affected area in the 21 days before illness onset. Initial Sepsis Screen: Does the patient meet any 2 criteria? HR > 90 bpm. No. Patient's initial sepsis screen is negative. Does the patient have a suspected source of infection? No. Patient's initial sepsis screen is negative. Risk Assessment: Do you want to hurt yourself or someone else? Patient reports no desire to harm self or others. Onset of symptoms was November 20, 2020. 18:17 Method Of Arrival: Ambulatory ss 18:17 Acuity: DAVY 3 ss Historical: - Allergies: 18:19 No Known Allergies; ss - PMHx: 18:19 Anxiety; ss - PSHx: 18:19 ; back x 3; ss - Immunization history:: Adult Immunizations up to date. - Social history:: Smoking status: Patient reports the use of cigarette tobacco products, smokes one pack cigarettes per day. Screenin:58 Abuse screen: Denies threats or abuse. Denies injuries from another. Nutritional dm14 screening: No deficits noted. Tuberculosis screening: No symptoms or risk factors identified. Fall Risk None identified. Assessment: 18:45 General: Appears in no apparent distress. comfortable, well groomed, Behavior is calm, bb cooperative, appropriate for age. Pain: Complains of pain in Pt has pain in LUQ. She describes is as a knot. States is 2/10 at rest and 8/10 with movement Pain does not radiate. Pain currently is 8 out of 10 on a pain scale. GI: No deficits noted. 19:10 Reassessment: Patient appears in no apparent distress at this time. Patient and/or jb4 family updated on plan of care and expected duration. Pain level reassessed. Patient is alert, oriented x 3, equal unlabored respirations, skin warm/dry/pink. 20:00 Reassessment: Patient appears in no apparent distress at this time. Patient and/or jb4 family updated on plan of care and expected duration. Pain level reassessed. Patient is alert, oriented x 3, equal unlabored respirations, skin warm/dry/pink. Patient states feeling better. 21:00 Reassessment: Patient appears in no apparent distress at this time. Patient and/or jb4 family updated on plan of care and expected duration. Pain level reassessed. Patient is alert, oriented x 3, equal unlabored respirations, skin warm/dry/pink. Vital Signs: 18:17 BP 148 / 69; Pulse 114; Resp 18; Temp 98.0(O); Pulse Ox 99% on R/A; Weight 149.69 kg; ss Height 6 ft. 0 in. (182.88 cm); Pain 2/10; 19:45 BP 152 / 104; Pulse 91; Resp 16; Pulse Ox 98% on R/A; jb4 20:45 BP 140 / 98; Pulse 97; Resp 17; Pulse Ox 98% on R/A; jb4 18:17 Body Mass Index 44.76 (149.69 kg, 182.88 cm) ED Course: 18:11 Patient arrived in ED. mr 18:18 Triage completed. ss 18:19 Arm band placed on right wrist. ss 18:34 Joe Fowler PA is PHCP. cp 18:34 Joe Guerrero MD is Attending Physician. cp 18:38 Patricia Islas, KHUSHBOO is Primary Nurse. dm14 18:45 Inserted saline lock: 20 gauge in left antecubital area, using aseptic technique. bb 18:58 Patient has correct armband on for positive identification. Bed in low position. Call dm14 light in reach. 19:16 XRAY Chest (1 view) In Process Unspecified. EDMS 19:31 Slick Call MD is Attending Physician. cp 20:29 CT Abd/Pelvis - IV Contrast Only In Process Unspecified. EDMS 21:37 US Abdomen Limited: elevated liver enzymes In Process Unspecified. EDMS 21:40 Floyd Sparks MD is Referral Physician. cp 21:55 No provider procedures requiring assistance completed. IV discontinued, intact, vg1 bleeding controlled, No redness/swelling at site. Pressure dressing applied. Administered Medications: 19:35 Drug: TORadol - Ketorolac 15 mg Route: IVP; Site: left antecubital; bb 19:37 Follow up: Response: No adverse reaction bb 19:50 Drug: NS 0.9% 1000 ml Route: IV; Rate: 1 bolus; Site: left antecubital; jb4 Outcome: 21:41 Discharge ordered by MD. cp 21:56 Discharged to home ambulatory. vg1 21:56 Condition: stable 21:56 Discharge instructions given to patient, Instructed on discharge instructions, follow up and referral plans. medication usage, Demonstrated understanding of instructions, follow-up care, medications, Prescriptions given X 1. 21:56 Patient left the ED. vg1 Signatures: Dispatcher [employer] EDSC Shavon Arrieta Adriana Carson RN RN Kailyn Morrell, RN Joe Peoples PA PA Sai Chapman, RN KHUSHBOO jb4 Marga Chaudhari RN RN vg1 Patricia Islas, RN RN dm14 Corrections: (The following items were deleted from the chart) 19:36 18:58 General: Appears in no apparent distress. comfortable, well groomed, Behavior is bb calm, cooperative, appropriate for age, dm14 19:36 18:58 Pain: Complains of pain in Pt has pain in LUQ. She describes is as a knot. States bb is 2/10 at rest and 8/10 with movement Pain does not radiate. Pain currently is 8 out of 10 on a pain scale. dm14 19:36 18:58 GI: No deficits noted. dm14 bb
--- NOTE | 2020-11-21 21:43 | RAD REPORT ---
EXAM DESCRIPTION: US - Abdomen Exam Limited - 11/21/2020 9:37 pm CLINICAL HISTORY: ABD PAIN COMPARISON: No comparisons FINDINGS: The gallbladder demonstrates no gallstones. No pericholecystic fluid or gallbladder wall t hickening. The common bile duct is normal measuring 4 mm. The liver demonstrates significant fatty infiltration. IMPRESSION: Negative gallbladder/biliary tree findings. Significant fatty infiltration.
[2020-11-21 22:33] VITALS: TEMP 98
[2020-11-21 22:35] VITALS: O2SAT 98
[2020-11-21 22:36] VITALS: BP 140/98
== END 2020-11-21 21:56 | disposition home or self-care (01) ==
LOC: ER 18:07
DX: K76.0 Fatty (change of) liver, not elsewhere classified (principal); R94.5 Abnormal results of liver function studies; F17.210 Nicotine dependence, cigarettes, uncomplicated
CPT/HCPCS: 87088; 85025; 87086; 80048; 36415; 81025; 80076; 83690; 74177; 71045; 76705; 96374; 99284; Q9967; J7030; 81003; 81015